=== PATIENT | female | born 1970 | race Caucasian/White ===

== ENCOUNTER 2016-11-17 17:15 | Emergency (ER) | payer BC ==
[2016-11-17 18:40] VITALS: BP 114/68
--- NOTE | 2016-11-17 18:47 | UC ---
Throat Pain/Nasal Binh HPI - HPI Summary HPI Summary: 46 yo F c/o sore throat x 2 days. Son has culture proven strep and his girlfriend has strep. No fever. +PND and + cough. - History of Current Complaint Chief Complaint: UCRespiratory Stated Complaint: ST/NASALO DRIP/COUGH Time Seen by Provider: 11/17/16 18:33 Hx Obtained From: Patient Hx Last Menstrual Period: 2 mos ?: No Onset/Duration: Sudden Onset, Lasting Days, Still Present Severity: Moderate Pain Intensity: 2 Pain Scale Used: 0-10 Numeric Cough: Nonproductive Associated Signs & Symptoms: Positive: Dysphagia, Sinus Discomfort - Epiglottits Risk Factors Epiglottis Risk Factors: Negative - Allergies/Home Medications Allergies/Adverse Reactions: Allergies Allergy/AdvReac Type Severity Reaction Status Date / Time Erythromycin Allergy Severe GI symptoms Verified 11/17/16 18:39 Penicillins Allergy Severe HIVES, Verified 11/17/16 18:39 JOINT SWELLING PMH/Surg Hx/FS Hx/Imm Hx Previously Healthy: Yes - Surgical History Surgical History: Yes Surgery Procedure, Year, and Place: . titanium cage for disc- back and neck pain - Family History Known Family History: Positive: Cardiac Disease, Diabetes - Social History Occupation: Employed Full-time Lives: With Family Alcohol Use: None Substance Use Type: None Smoking Status (MU): Light Every Day Tobacco Smoker Type: Cigarettes Amount Used/How Often: 5 cigarets daily Length of Time of Smoking/Using Tobacco: 3 years When Did the Patient Quit Smoking/Using Tobacco: 15 YRS AGO Household Exposure Type: Cigarettes - Immunization History Most Recent Influenza Vaccination: 8540-8105 Review of Systems Constitutional: Negative Skin: Negative Eyes: Negative ENT: Sore Throat Respiratory: Cough Cardiovascular: Negative Gastrointestinal: Negative Genitourinary: Negative Motor: Negative Neurovascular: Negative Musculoskeletal: Negative Neurological: Negative Psychological: Negative All Other Systems Reviewed And Are Negative: Yes Physical Exam Triage Information Reviewed: Yes Appearance: Well-Appearing, Well-Nourished, Pain Distress Vital Signs: Initial Vital Signs Temp 98.6 F 11/17/16 18:30 Pulse 74 11/17/16 18:30 Resp 20 11/17/16 18:30 BP 114/68 11/17/16 18:30 Vital Signs Reviewed: Yes Eyes: Positive: Conjunctiva Clear ENT: Positive: Pharyngeal erythema, TMs normal. Negative: Tonsillar swelling, Tonsillar exudate, Muffled/hoarse voice Neck: Positive: Supple, Nontender, No Lymphadenopathy Respiratory: Positive: Lungs clear, Normal breath sounds, No respiratory distress, No accessory muscle use Cardiovascular: Positive: RRR, No Murmur, Pulses Normal, Brisk Capillary Refill Musculoskeletal: Positive: Strength Intact, ROM Intact Neurological: Positive: Alert, Muscle Tone Normal Psychological Exam: Normal Skin Exam: Normal Throat Pain/Nasal Course/Dx - Course Course Of Treatment: rapid A neg. Will offer pt antibiotics since 2 people close to her have strep and pt states she is getting worse every hour. - Differential Dx/Diagnosis Provider Diagnoses: pharyngitis Discharge - Discharge Plan Condition: Stable Disposition: HOME Prescriptions: Cefuroxime Axetil [Ceftin 500 MG TAB] 500 mg PO BID #20 tab Patient Education Materials: Pharyngitis (ED) Referrals: Julian Pacheco NP [Nurse Practitioner] -
== END 2016-11-17 19:20 | disposition home or self-care (01) ==
LOC: UCCORT 17:15
DX: J02.9 Acute pharyngitis, unspecified (principal); Z87.891 Personal history of nicotine dependence; Z88.1 Allergy status to other antibiotic agents; Z88.0 Allergy status to penicillin
CPT/HCPCS: 87651; 99212; G0463

== ENCOUNTER 2017-02-14 09:33 | Emergency (ER) | payer BC ==
[2017-02-14 11:21] VITALS: BP 100/70
--- NOTE | 2017-02-14 11:46 | UC ---
Throat Pain/Nasal Binh HPI - HPI Summary HPI Summary: 46 female presents to [facility] with complaints of sinus pain, congestion that began 1 -2 days ago and has been worsening. States she has sinus infections frequently. Admits to having throbbing pain left cheek/sinus, behind eye and upper maxillary area. Pain radiates into left ear. Patient denies fever/chills. Denies cough. Has been taking zyrtec and tried vero pots. Denies cough or nausea/vomiting. No other complaints at this time. No PMHx other than chronic neck pain and sinus infections. - History of Current Complaint Chief Complaint: UCRespiratory Stated Complaint: SINUS ISSUE Time Seen by Provider: 02/14/17 11:06 Hx Obtained From: Patient Hx Last Menstrual Period: 02/08/17 ?: No Onset/Duration: Sudden Onset, Lasting Days, Still Present, Worse Since Severity: Moderate Pain Intensity: 4 Pain Scale Used: 0-10 Numeric Cough: None Associated Signs & Symptoms: Positive: Sinus Discomfort Related History: Seasonal Allergies - Epiglottits Risk Factors Epiglottis Risk Factors: Negative - Allergies/Home Medications Allergies/Adverse Reactions: Allergies Allergy/AdvReac Type Severity Reaction Status Date / Time Erythromycin Allergy Severe GI symptoms Verified 02/14/17 11:15 Penicillins Allergy Severe HIVES, Verified 02/14/17 11:15 JOINT SWELLING PMH/Surg Hx/FS Hx/Imm Hx - Additional Past Medical History Additional PMH: no PMHX other than chronic neck pain and sinus infections - Surgical History Surgical History: Yes Surgery Procedure, Year, and Place: . titanium cage for disc- back and neck pain - Family History Known Family History: Positive: Cardiac Disease, Diabetes - Social History Alcohol Use: None Substance Use Type: None Smoking Status (MU): Light Every Day Tobacco Smoker Type: Cigarettes Amount Used/How Often: 5 cigarets daily Length of Time of Smoking/Using Tobacco: 3 years When Did the Patient Quit Smoking/Using Tobacco: 15 YRS AGO Household Exposure Type: Cigarettes - Immunization History Most Recent Influenza Vaccination: NOT IN 2017 Vaccination Up to Date: Yes Review of Systems Constitutional: Negative Eyes: Negative ENT: Sinus Congestion, Sinus Pain/Tenderness Respiratory: Negative Cardiovascular: Negative Musculoskeletal: Negative Neurological: Negative All Other Systems Reviewed And Are Negative: Yes Physical Exam Triage Information Reviewed: Yes Appearance: Well-Appearing, No Pain Distress, Well-Nourished Vital Signs: Initial Vital Signs Temp 98.2 F 02/14/17 11:16 Pulse 68 02/14/17 11:16 Resp 18 02/14/17 11:16 BP 100/70 02/14/17 11:16 Pulse Ox 98 02/14/17 11:16 Vital Signs Reviewed: Yes Eyes: Positive: Conjunctiva Clear ENT: Positive: Hearing grossly normal, Pharynx normal, Nasal congestion, TMs normal. Negative: Tonsillar swelling, Tonsillar exudate Dental: Positive: Percussion Tenderness @ - maxillary, left side more than right. Negative: Cervical Lymphadenopathy Neck: Positive: Supple, Nontender, No Lymphadenopathy Respiratory: Positive: Chest non-tender, Lungs clear, Normal breath sounds, No respiratory distress, No accessory muscle use Cardiovascular: Positive: RRR, No Murmur, Pulses Normal Abdomen Description: Positive: Nontender Bowel Sounds: Positive: Present Musculoskeletal: Positive: Strength Intact Neurological: Positive: Alert Psychological: Positive: Normal Response To Family Skin Exam: Normal Throat Pain/Nasal Course/Dx - Course Course Of Treatment: appears to be suffering from sinusitis will treat with antibiotic and flonsae. continue zyrtec and vero pot, saline rinse. Follow up with PCP if symptoms worsen or do not improve. Aware of worsening signs and symptoms. increase fluids, rest. - Differential Dx/Diagnosis Differential Diagnosis/HQI/PQRI: Otitis Media, Pharyngitis, Sinusitis, Tonsillitis, URI Provider Diagnoses: Acute Sinusitis Discharge - Discharge Plan Condition: Stable Disposition: HOME Prescriptions: DOXYcycline CAP(*) [DOXYcycline 100MG CAP(*)] 100 mg PO BID #14 cap Fluticasone NASAL SPRAY 50MCG* [Flonase NASAL SPRAY 50MCG*] 2 spray BOTH NARES DAILY #1 btl Patient Education Materials: Sinusitis (ED), Doxycycline (By mouth) Referrals: Non Staff,Doctor [Primary Care Provider] - Additional Instructions: Take prescribed medication as directed until entire dose is finished. Continue vero pots and zyrtec. Increase fluid intake and get plenty of rest. Follow up with PCP if symptoms do not improve or worsen
== END 2017-02-14 12:00 | disposition home or self-care (01) ==
LOC: UCCORT 09:33
DX: J01.90 Acute sinusitis, unspecified (principal); F17.210 Nicotine dependence, cigarettes, uncomplicated; M54.2 Cervicalgia
CPT/HCPCS: 99212; G0463

== ENCOUNTER 2017-06-08 14:09 | Emergency (ER) | payer BC ==
[2017-06-08 16:23] VITALS: BP 109/72
--- NOTE | 2017-06-08 16:29 | UC ---
Respiratory Complaint HPI - HPI Summary HPI Summary: Pt c/o chest tightness, cough, SOB with exertion and pt reports having the flu last week. - History of Current Complaint Stated Complaint: CHEST MARCE/TIRED Time Seen by Provider: 06/08/17 15:46 Hx Obtained From: Patient Hx Last Menstrual Period: 05/31/17 ?: No Onset/Duration: Gradual Onset, Lasting Days, Still Present Timing: Constant Severity Initially: Mild Severity Currently: Mild Pain Intensity: 3 Character: Cough: Nonproductive Aggravating Factors: Exertion, Deep Breaths Alleviating Factors: Nothing Associated Signs And Symptoms: Positive: Chills, URI - Risk Factors Pulmonary Embolism Risk Factors: Negative Cardiac Risk Factors: Negative Pseudomonas Risk Factors: Negative Tuberculosis Risk Factors: Negative - Allergies/Home Medications Allergies/Adverse Reactions: Allergies Allergy/AdvReac Type Severity Reaction Status Date / Time MS Erythromycin Allergy Severe GI symptoms Verified 06/08/17 16:23 [Erythromycin] MS Penicillins [Penicillins] Allergy Severe HIVES, Verified 06/08/17 16:23 JOINT SWELLING PMH/Surg Hx/FS Hx/Imm Hx Previously Healthy: Yes - Surgical History Surgical History: Yes Surgery Procedure, Year, and Place: . titanium cage for disc- back and neck pain - Family History Known Family History: Positive: Cardiac Disease, Diabetes - Social History Occupation: Employed Full-time Lives: With Family Alcohol Use: None Substance Use Type: None Smoking Status (MU): Light Every Day Tobacco Smoker Type: Cigarettes Amount Used/How Often: 5 cigarets daily Length of Time of Smoking/Using Tobacco: 3 years Have You Smoked in the Last Year: No When Did the Patient Quit Smoking/Using Tobacco: 15 YRS AGO Household Exposure Type: Cigarettes - Immunization History Most Recent Influenza Vaccination: NOT IN 2017 Vaccination Up to Date: Yes Review of Systems Constitutional: Chills, Fatigue Skin: Negative Eyes: Negative ENT: Negative Respiratory: Shortness Of Breath, Cough Cardiovascular: Negative Gastrointestinal: Negative Genitourinary: Negative Motor: Negative Neurovascular: Negative Musculoskeletal: Negative Neurological: Negative Psychological: Negative Is Patient Immunocompromised?: No All Other Systems Reviewed And Are Negative: Yes Physical Exam Triage Information Reviewed: Yes Appearance: Well-Appearing Vital Signs: Initial Vital Signs Temp 98.6 F 06/08/17 16:18 Pulse 74 06/08/17 16:18 Resp 18 06/08/17 16:18 BP 109/72 02/02/18 16:18 Pulse Ox 99 06/08/17 16:18 Vital Signs Reviewed: Yes Eye Exam: Normal ENT: Positive: Sinus tenderness - frontal Dental Exam: Normal Neck exam: Normal Respiratory Exam: Other Respiratory: Positive: Decreased breath sounds Cardiovascular Exam: Normal Musculoskeletal Exam: Normal Neurological Exam: Normal Psychological Exam: Normal Skin Exam: Normal UC Diagnostic Evaluation - Laboratory O2 Sat by Pulse Oximetry: 99 Respiratory Course/Dx - Differential Dx/Diagnosis Differential Diagnosis/HQI/PQRI: Bronchitis, Influenza Provider Diagnoses: post viral cough Discharge - Discharge Plan Condition: Stable Disposition: HOME Prescriptions: Albuterol HFA INHALER* [Ventolin HFA Inhaler*] 1 - 2 puff INH Q6H PRN #1 mdi PRN Reason: Sob/Wheezing Benzonatate CAP* [Tessalon 100 MG CAP*] 100 mg PO Q8H PRN #21 cap PRN Reason: Cough predniSONE TAB* [Deltasone TAB*] 30 mg PO DAILY #12 tab Patient Education Materials: Acute Cough (ED) Referrals: [facility] [Outside] Non Staff,Doctor [Primary Care Provider] -
== END 2017-06-08 16:36 | disposition home or self-care (01) ==
LOC: UCCORT 14:09
DX: R05 Cough (principal); R07.89 Other chest pain; R06.02 Shortness of breath; Z88.1 Allergy status to other antibiotic agents; Z88.0 Allergy status to penicillin; Z87.891 Personal history of nicotine dependence
CPT/HCPCS: 99212; G0463

== ENCOUNTER 2018-02-26 17:12 | Emergency (ER) | payer BC ==
[2018-02-26 19:29] VITALS: BP 111/74
--- NOTE | 2018-02-26 19:46 | UC ---
UC General HPI - HPI Summary HPI Summary: pt c/o a sore throat, cough, upset stomach and diarrhea x3 since yesterday. no diarrhea since this am. no fever or antibiotic use. some cramping with the diarrhea. - History of Current Complaint Chief Complaint: UCRespiratory Stated Complaint: ST/COUGH Time Seen by Provider: 02/26/18 19:18 Hx Obtained From: Patient Hx Last Menstrual Period: 02/16/18 Onset/Duration: Gradual Onset Pain Intensity: 2 Associated Signs & Symptoms: Negative: Fever, Vomiting - Allergy/Home Medications Allergies/Adverse Reactions: Allergies Allergy/AdvReac Type Severity Reaction Status Date / Time erythromycin base Allergy Severe GI SYMPTOMS Verified 02/26/18 19:21 MS Erythromycin Allergy Severe GI symptoms Verified 06/08/17 16:23 [Erythromycin] MS Penicillins [Penicillins] Allergy Severe HIVES, Verified 06/08/17 16:23 JOINT SWELLING Penicillins Allergy Severe HIVES AND Verified 02/26/18 19:21 JOINT SWELLING PMH/Surg Hx/FS Hx/Imm Hx - Additional Past Medical History Additional PMH: OCD, cervical disc dz. - Surgical History Surgical History: Yes Surgery Procedure, Year, and Place: . titanium cage for disc- back and neck pain. SPINAL FUSION NOVEMBER 2017 - Family History Known Family History: Positive: Cardiac Disease, Diabetes - Social History Occupation: Employed Full-time Alcohol Use: None Substance Use Type: None Smoking Status (MU): Former Smoker Type: Cigarettes Amount Used/How Often: 5 cigarets daily Length of Time of Smoking/Using Tobacco: 3 years Have You Smoked in the Last Year: Yes When Did the Patient Quit Smoking/Using Tobacco: NOVEMBER 2017 Household Exposure Type: Cigarettes - Immunization History Most Recent Influenza Vaccination: NOT IN 2017 Vaccination Up to Date: Yes Review of Systems Constitutional: Negative Skin: Negative Eyes: Negative ENT: Sore Throat Respiratory: Cough Cardiovascular: Negative Gastrointestinal: Diarrhea Genitourinary: Negative Motor: Negative Neurovascular: Negative Musculoskeletal: Negative Neurological: Negative Psychological: Negative Is Patient Immunocompromised?: No All Other Systems Reviewed And Are Negative: Yes Physical Exam Triage Information Reviewed: Yes Appearance: Well-Appearing Vital Signs: Initial Vital Signs Temp 98.2 F 02/26/18 19:22 Pulse 70 02/26/18 19:22 Resp 16 02/26/18 19:22 BP 111/74 02/26/18 19:22 Pulse Ox 100 10/23/18 19:22 Vital Signs Reviewed: Yes Eyes: Positive: Conjunctiva Clear ENT: Positive: Pharynx normal, TMs normal. Negative: Nasal congestion, Nasal drainage Neck: Positive: Supple, Nontender, No Lymphadenopathy Respiratory: Positive: Lungs clear, Normal breath sounds Cardiovascular: Positive: RRR, No Murmur Abdomen Description: Positive: Nontender, No Organomegaly, Soft. Negative: Distended, Guarding Bowel Sounds: Positive: Present Musculoskeletal: Positive: ROM Intact Neurological: Positive: Alert Psychological: Positive: Age Appropriate Behavior Skin Exam: Normal Skin: Negative: rashes Diagnostics - Laboratory Diagnostic Studies Completed/Ordered: rapid strep=neg. Course/Dx - Course Course Of Treatment: rapid strep=neg. non toxic. no acute abdomen. tx supportive - Differential Dx - Multi-Symptom Provider Diagnoses: sore throat, cough, diarrhea. Discharge - Sign-Out/Discharge Documenting (check all that apply): Patient Departure All imaging exams completed and their final reports reviewed: No Studies - Discharge Plan Condition: Stable Disposition: HOME Patient Education Materials: Viral Syndrome (ED) Referrals: Keisha Hitchcock PA [Primary Care Provider] - 5 Days - Billing Disposition and Condition Condition: STABLE Disposition: Home
== END 2018-02-26 20:00 | disposition home or self-care (01) ==
LOC: UCCORT 17:12
DX: J02.9 Acute pharyngitis, unspecified (principal); R05 Cough; R19.7 Diarrhea, unspecified; Z88.1 Allergy status to other antibiotic agents; Z88.0 Allergy status to penicillin; Z87.891 Personal history of nicotine dependence
CPT/HCPCS: 87651; 99211; G0463

== ENCOUNTER 2018-08-04 18:05 | Emergency (ER) | payer BC ==
[2018-08-04 18:47] VITALS: BP 123/77
--- NOTE | 2018-08-04 19:05 | UC ---
UC General HPI - HPI Summary HPI Summary: uti x 2 days. hx same. no fever, abdominal pain, vaginal discharge or flank pain. - History of Current Complaint Chief Complaint: UCGU Stated Complaint: URINARY Time Seen by Provider: 08/04/18 18:54 Hx Obtained From: Patient Hx Last Menstrual Period: 07/04/18 Onset/Duration: Gradual Onset Timing: Constant Pain Intensity: 3 Associated Signs & Symptoms: Negative: Abdominal Pain, Fever - Allergy/Home Medications Allergies/Adverse Reactions: Allergies Allergy/AdvReac Type Severity Reaction Status Date / Time erythromycin base Allergy Severe GI SYMPTOMS Verified 08/04/18 18:47 Penicillins Allergy Severe HIVES AND Verified 08/04/18 18:47 JOINT SWELLING PMH/Surg Hx/FS Hx/Imm Hx - Additional Past Medical History Additional PMH: uti, urethral stricture. Psychological History: Depression - Surgical History Surgical History: Yes Surgery Procedure, Year, and Place: . titanium cage for disc- back and neck pain. SPINAL FUSION NOVEMBER 2017 - Family History Known Family History: Positive: Cardiac Disease, Diabetes - Social History Alcohol Use: None Substance Use Type: None Smoking Status (MU): Light Every Day Tobacco Smoker Type: Cigarettes Amount Used/How Often: 5 cigarets daily Length of Time of Smoking/Using Tobacco: 3 years Have You Smoked in the Last Year: Yes When Did the Patient Quit Smoking/Using Tobacco: NOVEMBER 2017 Household Exposure Type: Cigarettes - Immunization History Most Recent Influenza Vaccination: NOT IN 2017 Vaccination Up to Date: Yes Review of Systems All Other Systems Reviewed And Are Negative: Yes Constitutional: Negative: Fever Genitourinary: Positive: Dysuria, Frequency, Urgency Physical Exam Triage Information Reviewed: Yes Appearance: Well-Appearing Vital Signs: Initial Vital Signs Temp 98.1 F 08/04/18 18:44 Pulse 69 08/04/18 18:44 Resp 15 08/04/18 18:44 BP 123/77 08/04/18 18:44 Pulse Ox 100 08/04/18 18:44 Vital Signs Reviewed: Yes Eyes: Positive: Conjunctiva Clear Respiratory: Positive: Lungs clear Cardiovascular: Positive: RRR Abdomen Description: Positive: Nontender, No Organomegaly, Soft. Negative: CVA Tenderness (R), CVA Tenderness (L), Distended, Guarding Bowel Sounds: Positive: Present Musculoskeletal: Positive: ROM Intact Neurological: Positive: Alert Psychological: Positive: Age Appropriate Behavior Skin Exam: Normal Course/Dx - Course Course Of Treatment: u/a=trace blood. no leukocytes or nitrites. culture is pending. - Differential Dx - Multi-Symptom Differential Diagnoses: Other - non toxic.no acute abdomen. trace blood on u/a and culture pending; however, I am going to tx for presumptive infection given prior hx urethral stricture with stretching and uti's - Diagnoses Provider Diagnosis: Dysuria Discharge - Sign-Out/Discharge Documenting (check all that apply): Patient Departure All imaging exams completed and their final reports reviewed: No Studies - Discharge Plan Condition: Stable Disposition: HOME Prescriptions: Nitrofurantoin Monohyd/M-Cryst [Macrobid 100 mg Capsule] 100 mg PO BID 5 Days # 10 cap Patient Education Materials: Dysuria (ED) Referrals: Keisha Hitchcock PA [Primary Care Provider] - 5 Days - Billing Disposition and Condition Condition: STABLE Disposition: Home
[2018-08-04] MEDS ORDERED: Nitrofurantoin Macrocrystals* 50 MG CAP PO ONE (19:19)
== END 2018-08-04 19:25 | disposition home or self-care (01) ==
LOC: UCCORT 18:05
DX: R30.0 Dysuria (principal); N89.8 Other specified noninflammatory disorders of vagina; F17.210 Nicotine dependence, cigarettes, uncomplicated; R10.9 Unspecified abdominal pain; Z88.0 Allergy status to penicillin; Z88.1 Allergy status to other antibiotic agents
CPT/HCPCS: 81003; 87086; 99212; A9270-GY; G0463

== ENCOUNTER 2018-09-17 14:33 | Emergency (ER) | payer BC ==
[2018-09-17 14:56] VITALS: BP 110/72
--- NOTE | 2018-09-17 15:28 | UC ---
Complaint Female HPI - HPI Summary HPI Summary: Pt presents with c/o urinary frequency, urgency, dysuria, pelvic pressure and generalized malaise X 3 days. - History Of Current Complaint Chief Complaint: UCGU Stated Complaint: URINARY Hx Obtained From: Patient Hx Last Menstrual Period: irregular ?: No Onset/Duration: Sudden Onset, Lasting Days, Still Present Timing: Constant Severity Initially: Mild Severity Currently: Mild Pain Intensity: 0 Character: Dull, Burning Aggravating Factor(s): Urination Alleviating Factor(s): Nothing Associated Signs And Symptoms: Positive: Negative - Risk Factors Ectopic Risk Factor: Negative Ovarian Torsion Risk Factor: Negative - Allergies/Home Medications Allergies/Adverse Reactions: Allergies Allergy/AdvReac Type Severity Reaction Status Date / Time erythromycin base Allergy Severe GI SYMPTOMS Verified 08/04/18 18:47 Penicillins Allergy Severe HIVES AND Verified 08/04/18 18:47 JOINT SWELLING PMH/Surg Hx/FS Hx/Imm Hx Previously Healthy: Yes - Surgical History Surgical History: Yes Surgery Procedure, Year, and Place: . titanium cage for disc- back and neck pain. SPINAL FUSION NOVEMBER 2017 - Family History Known Family History: Positive: Cardiac Disease, Diabetes - Social History Occupation: Employed Full-time Lives: With Family Alcohol Use: None Substance Use Type: None Smoking Status (MU): Light Every Day Tobacco Smoker Type: Cigarettes Amount Used/How Often: 5 cigarets daily Length of Time of Smoking/Using Tobacco: 3 years Have You Smoked in the Last Year: Yes When Did the Patient Quit Smoking/Using Tobacco: NOVEMBER 2017 Household Exposure Type: Cigarettes - Immunization History Most Recent Influenza Vaccination: NOT IN 2017 Vaccination Up to Date: Yes Review of Systems All Other Systems Reviewed And Are Negative: Yes Constitutional: Positive: Fatigue Skin: Positive: Negative Eyes: Positive: Negative ENT: Positive: Negative Respiratory: Positive: Negative Cardiovascular: Positive: Negative Gastrointestinal: Positive: Negative Genitourinary: Positive: Dysuria, Frequency, Urgency Motor: Positive: Negative Neurovascular: Positive: Negative Musculoskeletal: Positive: Myalgia Neurological: Positive: Negative Psychological: Positive: Negative Is Patient Immunocompromised?: No Physical Exam Triage Information Reviewed: Yes Appearance: Well-Appearing Vital Signs: Initial Vital Signs Temp 98.4 F 09/17/18 14:51 Pulse 68 09/17/18 14:51 Resp 18 09/17/18 14:51 BP 110/72 09/17/18 14:51 Pulse Ox 98 09/17/18 14:51 Vital Signs Reviewed: Yes Eye Exam: Normal ENT Exam: Normal ENT: Positive: Hearing grossly normal Dental Exam: Normal Neck exam: Normal Respiratory Exam: Normal Cardiovascular Exam: Normal Abdominal Exam: Normal Abdomen Description: Positive: Nontender Musculoskeletal Exam: Normal Neurological Exam: Normal Psychological Exam: Normal Skin Exam: Normal Complaint Female Dx - Differential Dx/Diagnosis Differential Diagnosis/HQI/PQRI: Urinary Tract Infection Provider Diagnosis: Dysuria Discharge - Sign-Out/Discharge Documenting (check all that apply): Patient Departure All imaging exams completed and their final reports reviewed: No Studies - Discharge Plan Condition: Stable Disposition: HOME Prescriptions: Phenazopyridine 200 mg (NF) [Pyridium 200 MG tab *] 200 mg PO Q8H #3 tab Sulfamethox/Trimethoprim DS* [Bactrim DS 800/160 TAB*] 1 tab PO Q12H #10 tab Patient Education Materials: Dysuria (ED) Referrals: Keisha Hitchcock PA [Primary Care Provider] - As Soon As Possible Lio Lr MD [Medical Doctor] - If Needed - Billing Disposition and Condition Condition: STABLE Disposition: Home
== END 2018-09-17 15:43 | disposition home or self-care (01) ==
LOC: UCCORT 14:33
DX: R30.0 Dysuria (principal); R35.0 Frequency of micturition; Z88.0 Allergy status to penicillin; Z88.1 Allergy status to other antibiotic agents; F17.210 Nicotine dependence, cigarettes, uncomplicated
CPT/HCPCS: 81003; 87086; 99212; G0463

== ENCOUNTER 2019-02-24 08:37 | Emergency (ER) | payer BC ==
--- NOTE | 2019-02-24 08:55 | UC ---
Throat Pain/Nasal Binh HPI - HPI Summary HPI Summary: 48 y/o female presents to the urgent care c/o nasal congestion w/ yellowish discharge, moderate PND and non-productive cough for the past week. Symptoms started like a common cold and have worsen despite taken OTC medication. She saw her PCP last Sunday and diagnosed with viral illness. 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 She is concerned that it can become bronchitis, She hasn't been able to sleep well last night due to cough and this morning she has Rt ear pain and pressure. Pt denies fever, SOB, dizziness, ACKERMAN, chest pain, abdominal pain, N/V/D. - History of Current Complaint Stated Complaint: ST,COUGH,CONGESTION Time Seen by Provider: 02/24/19 08:55 Hx Obtained From: Patient Hx Last Menstrual Period: irregular Onset/Duration: Gradual Onset, Lasting Weeks - 1 week, Still Present, Worse Since - 2 days Severity: Moderate Pain Intensity: 4 - sinus pain and pressure Pain Scale Used: 0-10 Numeric Cough: Nonproductive Associated Signs & Symptoms: Positive: Sinus Discomfort, Nasal Discharge - yellowish. Negative: Dysphagia, Wheezing, Hoarseness, Fever - Epiglottits Risk Factors Epiglottis Risk Factors: Negative - Allergies/Home Medications Allergies/Adverse Reactions: Allergies Allergy/AdvReac Type Severity Reaction Status Date / Time erythromycin base Allergy Severe GI SYMPTOMS Verified 02/24/19 08:50 Penicillins Allergy Severe HIVES AND Verified 02/24/19 08:50 JOINT SWELLING Home Medications: Home Medications Eszopiclone [Lunesta] 2 mg PO BEDTIME 02/24/19 [History Confirmed 02/24/19] PMH/Surg Hx/FS Hx/Imm Hx Previously Healthy: Yes - Pt denies PMHX - Surgical History Surgical History: Yes Surgery Procedure, Year, and Place: . titanium cage for disc- back and neck pain. SPINAL FUSION NOVEMBER 2017 - Family History Known Family History: Positive: Cardiac Disease, Diabetes - Social History Occupation: Employed Full-time Lives: With Family Alcohol Use: None Substance Use Type: None Smoking Status (MU): Light Every Day Tobacco Smoker Type: Cigarettes Amount Used/How Often: 5 cigarets daily Length of Time of Smoking/Using Tobacco: 3 years Have You Smoked in the Last Year: Yes When Did the Patient Quit Smoking/Using Tobacco: NOVEMBER 2017 Household Exposure Type: Cigarettes - Immunization History Most Recent Influenza Vaccination: NOT IN 2017 Vaccination Up to Date: Yes Review of Systems All Other Systems Reviewed And Are Negative: Yes Constitutional: Positive: Negative Skin: Positive: Negative Eyes: Positive: Negative ENT: Positive: Sore Throat, Ear Ache - RT ear pain, Nasal Discharge - yellowish , Sinus Congestion, Sinus Pain/Tenderness, Other - moderate PND Respiratory: Positive: Cough - dry Cardiovascular: Positive: Negative Gastrointestinal: Positive: Negative Genitourinary: Positive: Negative Motor: Positive: Negative Neurovascular: Positive: Negative Musculoskeletal: Positive: Negative Neurological: Positive: Negative Psychological: Positive: Negative Is Patient Immunocompromised?: No Physical Exam - Summary Physical Exam Summary: Vitals: reviewed General: Well developed, well-nourished female patient with NAD or pain Head and face: Normocephalic and atraumatic, Positive tenderness over the frontal and maxillary sinuses.. Eyes: PERRLA, EOMI x 2. Normal conjunctiva. No eye discharge. ENT: Ears and TM with normal limits. Nose: edematous and erythematous nasal mucosa with with yellowish discharge and erythematous mucosa. Pharynx with erythema, no exudate. Neck: Supple, no JVD, no carotid bruits and no lymphadenopathy. Lungs: clear, no rales, no rhonchi, no wheezes. CVS: RRR, S1 and S2 present no murmurs or gallops appreciated. Abdomen: soft nontender with positive bowel sounds. Extremities: no edema noted. Neuro: WNL. Skin: warm and dry Triage Information Reviewed: Yes Throat Pain/Nasal Course/Dx - Course Course Of Treatment: 48 y/o female presents to the urgent care c/o nasal congestion w/ yellowish discharge, moderate PND and non-productive cough for the past week. Symptoms started like a common cold and have worsen despite taken OTC medication. She saw her PCP last Sunday and diagnosed with viral illness. 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 She is concerned that it can become bronchitis, She hasn't been able to sleep well last night due to cough and this morning she has Rt ear pain and pressure. Pt denies fever, SOB, dizziness, ACKERMAN, chest pain, abdominal pain, N/V/D. Hx obtained. Pt with 1 week of symptoms getting worse. Pt PCN and erythomycin allergic. Pt Rx Doxycycline PO and flonase nasal spray. Tessalon PO for cough. Discharge instructions explained to Pt. Advised to Return to the clinic or PCP if symptoms do not improve.Pt understood and agreed with plan of care. - Differential Dx/Diagnosis Differential Diagnosis/HQI/PQRI: Influenza, Laryngitis, Otitis Media, Pharyngitis, Sinusitis, Tonsillitis Provider Diagnosis: Acute bacterial sinusitis, Cough Discharge ED - Sign-Out/Discharge Documenting (check all that apply): Patient Departure - D/C home All imaging exams completed and their final reports reviewed: No Studies - Discharge Plan Condition: Stable Disposition: HOME Prescriptions: Benzonatate CAP* [Tessalon 100 MG CAP*] 100 mg PO TID PRN #21 cap PRN Reason: Cough DOXYcycline CAP(*) [DOXYcycline 100MG CAP(*)] 100 mg PO BID #14 cap Fluticasone NASAL SPRAY 50MCG* [Flonase NASAL SPRAY 50MCG*] 2 spray BOTH NARES DAILY #1 btl Patient Education Materials: Sinusitis (ED) Referrals: Valeria Weaver TAPPER HAND [Primary Care Provider] - 3 Days Additional Instructions: 1- Please increase fluid intake and rest. take full course of antibiotics to avoid resistance. Take yogurts w/ probiotics or Culturelle to protect your GI system 2-Use Flonase nasal spray as directed to help drain fluid. Also buy saline drops to clear sinuses 3-Take Tessalon tabs PO to alleviate cough 4-Please f/u w/ your PCP in 3 days if symptoms do not improve for further management and treatment - Billing Disposition and Condition Condition: STABLE Disposition: Home
[2019-02-24 08:56] VITALS: BP 111/72
== END 2019-02-24 09:20 | disposition home or self-care (01) ==
LOC: UCCORT 08:37
DX: J01.90 Acute sinusitis, unspecified (principal); R05 Cough; H92.01 Otalgia, right ear; B96.89 Other specified bacterial agents as the cause of diseases classified elsewhere; F17.210 Nicotine dependence, cigarettes, uncomplicated; Z88.1 Allergy status to other antibiotic agents; Z88.0 Allergy status to penicillin
CPT/HCPCS: 99212; G0463

== ENCOUNTER 2019-03-02 10:05 | Emergency (ER) | payer BC ==
--- OUTSIDE RECORDS SUMMARY | 2019-03-02 10:15 | XMS REPORT | Continuity of Care Document ---
:1970 External Reference #:[id number] Author Name Roldan Martinez FNP Address [address] [place] [address] Care Team Providers Name Role Phone Valeria Weaver, ALLISON, LOAD OUT WORKER, Ibclc Care Team Information Shipping Associate - Family Problems Description No Information Available Social History Type Date Description Comments Sex Unknown Tobacco Use Start: Unknown Light tobacco smoker (10 or fewer cigarettes/day) Smoking Status Reviewed: 02/19/19 Light tobacco smoker (10 or fewer cigarettes/day) ETOH Use Denies alcohol use Tobacco Use Start: Unknown Light tobacco smoker (10 or fewer cigarettes/day) Recreational Drug Use Marijuana Allergies, Adverse Reactions, Alerts Active Allergies Reaction Severity Comments Date Penicillin 09/03/2012 Erythromycin 09/03/2012 Medications Active Medications SIG Qnty Indications Ordering Provider Date Fluvoxamine Maleate ER 1 tab po qday 90caps Valeria Weaver, 02/05/2019 PNPBHARGAVI, LOAD OUT WORKER, Ibclc 100mg Caps ER 24HR Eszopiclone 1 tab by mouth 30tabs Delmis Allison MD 01/08/2019 2mg Tablets at bedtime. ref#[id number] Advil prn Unknown 200mg Tablets History Medications Eszopiclone 1 tab by mouth at 30tabs Enriqueta Peguero, 12/26/2018 - 1mg bedtime as needed LOAD OUT WORKER 01/08/2019 Tablets reference #: [id number] Zolpidem Tartrate take 0.5-1 tablet 30tabs G47.00 Valeria Weaver, 2018 - 5mg by mouth at PNP-GIBRAN, LOAD OUT WORKER, 12/23/2018 Tablets bedtime as needed Ibclc for insomnia max/day=1 Reference #: [id number] Immunizations Description No Information Available Vital Signs Date Vital Result Comment 02/19/2019 8:42am BP Systolic 112 mmHg BP Diastolic 68 mmHg Body Temperature 97.7 F Heart Rate 78 /min Respiratory Rate 18 /min Height 63.25 inches 5'3.25" Weight 140.00 lb BMI (Body Mass Index) 24.6 kg/m2 BSA (Body Surface Area) 1.67 m2 [place] body weight in kilograms 53 kg O2 % BldC Oximetry 95 % Ra 12/12/2018 8:52am BP Systolic 120 mmHg BP Diastolic 68 mmHg Body Temperature 97.3 F Heart Rate 83 /min Respiratory Rate 18 /min Height 63.25 inches 5'3.25" Weight 145.12 lb BMI (Body Mass Index) 25.5 kg/m2 BSA (Body Surface Area) 1.69 m2 [place] body weight in kilograms 53 kg O2 % BldC Oximetry 98 % Results Description No Information Available Procedures Description No Information Available Medical Devices Description No Information Available Encounters Type Date Location Provider Dx Diagnosis Office Visit 02/19/2019 [facility] Michelle, B34.9 Viral infection, 8:45a [place], unspecified LOAD OUT WORKER Office Visit 12/12/2018 [facility] Bernardo Damon MD J02.9 Acute pharyngitis, 8:[address] unspecified G47.00 Insomnia, unspecified Office Visit 12/09/2018 2:00p [facility] Valeria Weaver, G47.00 Insomnia, [facility] PNP-BC, LOAD OUT WORKER, unspecified Ibclc Assessments Date Code Description Provider 02/19/2019 B34.9 Viral infection, unspecified Roldan Martinez FNP 12/12/2018 J02.9 Acute pharyngitis, unspecified Bernardo Damon MD 12/12/2018 G47.00 Insomnia, unspecified Bernardo Damon MD 12/09/2018 G47.00 Insomnia, unspecified Valeria Weaver PNP-BC, LOAD OUT WORKER, Ibclc Plan of Treatment Future Appointment(s):03/11/2019 1:30 pm - Roldan Martinez FNP at [facility]03/25/2019 1:00 pm - Family Nurse at [facility] - Roldan Martinez, FNPB34.9 Viral infection, unspecifiedComments: Exam normal at this time Discussed supportive treatments - alternating Tylenol and Ibuprofen for body aches - course of illness 3-5 days. If any worsening, shortness of breath, wheezing, fever or chills please contact the office offered and declined OOW note at this time - but can be done if neededFollow up: 1 week nurse visit for flu shot Functional Status Description No Information Available Mental Status Description No Information Available Referrals Description No Information Available
[2019-03-02 10:20] VITALS: BP 101/71
--- NOTE | 2019-03-02 10:25 | UC ---
Respiratory Complaint HPI - History of Current Complaint Chief Complaint: UCGeneralIllness Stated Complaint: SINUS,ST,COUGH Time Seen by Provider: 03/02/19 10:14 Hx Last Menstrual Period: irregular Pain Intensity: 4 - Allergies/Home Medications Allergies/Adverse Reactions: Allergies Allergy/AdvReac Type Severity Reaction Status Date / Time erythromycin base Allergy Severe GI SYMPTOMS Verified 03/02/19 10:20 Penicillins Allergy Severe HIVES AND Verified 03/02/19 10:20 JOINT SWELLING PMH/Surg Hx/FS Hx/Imm Hx - Surgical History Surgical History: Yes Surgery Procedure, Year, and Place: . titanium cage for disc- back and neck pain. SPINAL FUSION NOVEMBER 2017 - Family History Known Family History: Positive: Cardiac Disease, Diabetes - Social History Alcohol Use: None Substance Use Type: None Smoking Status (MU): Light Every Day Tobacco Smoker Type: Cigarettes Amount Used/How Often: 7-10 cigarettes daily Length of Time of Smoking/Using Tobacco: 3 years Have You Smoked in the Last Year: Yes When Did the Patient Quit Smoking/Using Tobacco: NOVEMBER 2017 Household Exposure Type: Cigarettes - Immunization History Most Recent Influenza Vaccination: NOT IN 2016 Vaccination Up to Date: Yes Physical Exam Vital Signs: Initial Vital Signs Temp 98.7 F 03/02/19 10:14 Pulse 96 03/02/19 10:14 Resp 18 03/02/19 10:14 BP 101/71 03/02/19 10:14 Pulse Ox 98 03/02/19 10:14 Respiratory Course/Dx - Course Course Of Treatment: Sinus sx for 3 weeks, did not improve with Doxycyline, PNC allergy. Will treat with Levaquin and Medrol Dose Vineet. - Differential Dx/Diagnosis Differential Diagnosis/HQI/PQRI: Bronchitis Provider Diagnosis: Sinusitis Discharge ED - Sign-Out/Discharge Documenting (check all that apply): Patient Departure All imaging exams completed and their final reports reviewed: No Studies - Discharge Plan Condition: Stable Disposition: HOME Prescriptions: Levofloxacin TAB* [Levaquin TAB*] 500 mg PO DAILY 10 Days #10 tab methylPREDNISolone [Medrol] 4 mg PO DAILY #1 tab.ds.pk Patient Education Materials: Sinusitis (ED) Referrals: Valeria Weaver, [employer]LECT[employer]ESS[employer]IES I ASSEMBLER [Primary Care Provider] - Additional Instructions: Drink plenty of fluids and take medications as prescribed. Tylenol or Ibuprofen foe sinus pain. Smoking cessation strongly encouraged. - Billing Disposition and Condition Condition: STABLE Disposition: Home
== END 2019-03-02 10:45 | disposition home or self-care (01) ==
LOC: UCCORT 10:05
DX: J32.9 Chronic sinusitis, unspecified (principal); J02.9 Acute pharyngitis, unspecified; R05 Cough; F17.210 Nicotine dependence, cigarettes, uncomplicated; Z88.1 Allergy status to other antibiotic agents; Z88.0 Allergy status to penicillin
CPT/HCPCS: 99212; G0463

== ENCOUNTER 2019-07-14 10:02 | Emergency (ER) | payer BC ==
[2019-07-14 10:23] VITALS: BP 105/69
--- NOTE | 2019-07-14 10:52 | UC ---
Complaint Female HPI - HPI Summary HPI Summary: 49 yo female with dysuria urgency frequency x 3 weeks mild improvement after macrobid no f/c no vag d/c or itch no back or flank pain terminal dysuria and frequency - History Of Current Complaint Chief Complaint: UCGU Stated Complaint: URINARY Time Seen by Provider: 07/14/19 10:42 Hx Obtained From: Patient Hx Last Menstrual Period: irregular Onset/Duration: Gradual Onset, Lasting Days Timing: Constant Pain Intensity: 0 Pain Scale Used: 0-10 Numeric Character: Burning Aggravating Factor(s): Urination Alleviating Factor(s): Meds - pyridium Associated Signs And Symptoms: Negative: Fever, Back Pain, Vaginal Bleeding/ Discharge, Vaginal Discharge, Nausea - Allergies/Home Medications Allergies/Adverse Reactions: Allergies Allergy/AdvReac Type Severity Reaction Status Date / Time erythromycin base Allergy Severe GI SYMPTOMS Verified 07/14/19 10:19 Penicillins Allergy Severe HIVES AND Verified 07/14/19 10:19 JOINT SWELLING Home Medications: Home Medications Eszopiclone [Lunesta] 2 mg PO BEDTIME 02/24/19 [History Confirmed 07/14/19] Fluticasone NASAL SPRAY 50MCG* [Flonase NASAL SPRAY 50MCG*] 2 spray BOTH NARES DAILY #1 btl 02/24/19 [Rx Confirmed 07/14/19] Cetirizine* [ZyrTEC 10 MG TAB*] 10 mg PO BEDTIME 07/14/19 [History Confirmed 01/24] Fluvoxamine Maleate [Fluvoxamine Maleate ER] 100 mg PO BEDTIME 07/14/19 [ History Confirmed 07/14/19] Sulfamethox/Trimethoprim DS* [Bactrim DS 800/160 TAB*] 1 tab PO BID #14 tab 01/24 [Rx] PMH/Surg Hx/FS Hx/Imm Hx Previously Healthy: Yes - Surgical History Surgical History: Yes Surgery Procedure, Year, and Place: . titanium cage for disc- back and neck pain. SPINAL FUSION NOVEMBER 2017 - Family History Known Family History: Positive: Cardiac Disease, Diabetes - Social History Alcohol Use: None Substance Use Type: None Smoking Status (MU): Light Every Day Tobacco Smoker Type: Cigarettes Amount Used/How Often: 7-10 cigarettes daily Length of Time of Smoking/Using Tobacco: 3 years Have You Smoked in the Last Year: Yes When Did the Patient Quit Smoking/Using Tobacco: NOVEMBER 2017 Household Exposure Type: Cigarettes - Immunization History Most Recent Influenza Vaccination: NOT IN 2017 Vaccination Up to Date: Yes Review of Systems All Other Systems Reviewed And Are Negative: Yes Constitutional: Positive: Negative Skin: Positive: Negative Eyes: Positive: Negative ENT: Positive: Negative Respiratory: Positive: Negative Cardiovascular: Positive: Negative Gastrointestinal: Positive: Negative Genitourinary: Positive: Dysuria, Frequency, Urgency Motor: Positive: Negative Neurovascular: Positive: Negative Musculoskeletal: Positive: Negative Neurological/Mental Status: Positive: Negative Psychological: Positive: Negative Physical Exam Triage Information Reviewed: Yes Appearance: Well-Appearing, No Pain Distress, Well-Nourished Vital Signs: Initial Vital Signs Temp 98.1 F 07/14/19 10:20 Pulse 72 07/14/19 10:20 Resp 16 07/14/19 10:20 BP 105/69 07/14/19 10:20 Pulse Ox 99 07/14/19 10:20 Vital Signs Reviewed: Yes Eyes: Positive: Conjunctiva Clear ENT: Positive: Hearing grossly normal. Negative: Nasal congestion, Nasal drainage, Trismus, Muffled voice, Hoarse voice Dental Exam: Normal Neck: Positive: Supple, Nontender, No Lymphadenopathy Respiratory: Positive: Lungs clear, Normal breath sounds, No respiratory distress, No accessory muscle use Cardiovascular: Positive: RRR, No Murmur Abdomen Description: Positive: Nontender, No Organomegaly, Soft. Negative: CVA Tenderness (R), CVA Tenderness (L) Bowel Sounds: Positive: Present Musculoskeletal: Positive: ROM Intact, No Edema Neurological: Positive: Alert, Muscle Tone Normal Psychological Exam: Normal Skin Exam: Normal Complaint Female Dx - Differential Dx/Diagnosis Provider Diagnosis: Dysuria Discharge ED - Sign-Out/Discharge Documenting (check all that apply): Patient Departure All imaging exams completed and their final reports reviewed: No Studies - Discharge Plan Condition: Stable Disposition: HOME Prescriptions: Sulfamethox/Trimethoprim DS* [Bactrim DS 800/160 TAB*] 1 tab PO BID #14 tab Patient Education Materials: Dysuria (ED) Referrals: Valeria Weaver, DIRECTOR DIGITAL COMMUNICATIONS [Primary Care Provider] - 3 Days (if not better) Additional Instructions: a urine culture is pending - Billing Disposition and Condition Condition: STABLE Disposition: Home
--- NOTE | 2019-07-17 07:34 | UC ---
- Progress Note Progress Note: Please call to advise that urine culture was negative. Advise follow up with her primary physician to re-check because she did have blood in her urine at the time of assessment. Course/Dx - Diagnoses Provider Diagnoses: Dysuria Discharge ED - Sign-Out/Discharge Documenting (check all that apply): Post-Discharge Follow Up All imaging exams completed and their final reports reviewed: No Studies - Discharge Plan Condition: Stable Disposition: HOME Prescriptions: Sulfamethox/Trimethoprim DS* [Bactrim DS 800/160 TAB*] 1 tab PO BID #14 tab Patient Education Materials: Dysuria (ED) Referrals: Valeria Weaver NP [Primary Care Provider] - 3 Days (if not better) Additional Instructions: a urine culture is pending - Billing Disposition and Condition Condition: STABLE Disposition: Home
== END 2019-07-14 10:59 | disposition home or self-care (01) ==
LOC: UCCORT 10:02
DX: R30.0 Dysuria (principal); R35.0 Frequency of micturition; R39.15 Urgency of urination; Z88.1 Allergy status to other antibiotic agents; Z88.0 Allergy status to penicillin; F17.210 Nicotine dependence, cigarettes, uncomplicated; Z98.1 Arthrodesis status
CPT/HCPCS: 87086; 99212; G0463